=== PATIENT | male | born 1980 | race Caucasian/White ===

== ENCOUNTER 2018-07-13 15:36 | Inpatient (IN) | payer MEDICARE, MEDICAID ==
[~2018-07-13] VITALS: Ht 157.5 cm; Wt 50.8 kg
[2018-07-13] MEDS ORDERED: BENZ0.5T43 PO (16:06)
[2018-07-13] MEDS ORDERED: OLAN5TAB3 PO (16:06)
[2018-07-13] MEDS ORDERED: LORA10TA7 PO (16:06)
[2018-07-13] MEDS ORDERED: CARI3CAP PO (16:06)
[2018-07-13] MEDS ORDERED: DIVA500T54 PO (16:06)
[2018-07-13] MEDS ORDERED: FLUV50TA10 PO (16:06)
[2018-07-13] MEDS ORDERED: BACL10TA PO (16:06)
[2018-07-13] MEDS ORDERED: CLON0.5T12 PO (16:06)
[2018-07-13 16:24] LABS: BASOPHILS % (AUTO) 0.5 % (0.0-2.0); EOSINOPHILS % (AUTO) 7.6 % (0.0-6.0); HEMATOCRIT 40 % (39-51); HEMOGLOBIN 13.1 g/dL (13.5-17.5); LYMPHOCYTES # (AUTO) 1.7 /CMM (0.8-4.8); LYMPHOCYTES % (AUTO) 32.5 % (20.0-44.0); MEAN CORPUSCULAR HGB CONC 33 g/dl (31.0-36.0); MEAN CORPUSCULAR VOLUME 96 fL (80-96); MONOCYTES # (AUTO) 0.7 /CMM (0.1-1.30); MONOCYTES % (AUTO) 13.5 % (2.0-12.0); NEUTROPHILS # (AUTO) 2.4 /CMM (1.8-8.9); NEUTROPHILS % (AUTO) 45.9 % (43.0-81.0); PLATELET COUNT (AUTO) 195 /CMM (150-450); RED BLOOD CELL COUNT(AUTO) 4.13 MIL/uL (4.5-6.0); WHITE BLOOD COUNT (AUTO) 5.2 K/uL (4.3-11.0)
[2018-07-13 16:30] LABS: CALCIUM, SERUM 8.7 mg/dL (8.5-10.1); CARBON DIOXIDE 30 mmol/L (21-32); CHLORIDE 107 mmol/L (98-107); CREATININE 0.6 mg/dL (0.6-1.3); GLUCOSE 107 mg/dL (74-106); POTASSIUM 3.6 mmol/L (3.5-5.1); SODIUM SERUM 142 mmol/L (136-145); UREA NITROGEN, BLOOD 21 mg/dL (7-18)
[2018-07-13] MEDS ORDERED: IBUPROFEN 400 MG TABLET PO ONE (16:30)
[2018-07-13] MEDS ORDERED: OLANZAPINE 5 MG TABLET PO ONE (16:30)
[2018-07-13 16:38] LABS: ACETAMINOPHEN 0 ug/ml (10-30); ALANINE AMINOTRANSFERASE 31 U/L (12-78); ALBUMIN 3.1 g/dL (3.4-5.0); ALCOHOL, BLOOD < 3 mg/dL (0-0); ALKALINE PHOSPHATASE 44 U/L (46-116); ASPARTATE AMINOTRANSFERASE 54 U/L (15-37); BILIRUBIN,DIRECT 0.1 mg/dL (0.0-0.2); BILIRUBIN,TOTAL 0.2 mg/dL (0.2-1.0); SALICYLATE 1.2 mg/dL (2.8-20.0); TOTAL PROTEIN, SERUM 7.4 g/dL (6.4-8.2)
[2018-07-13 18:08] LABS: APPEARANCE,URINE Slightly Cloudy (CLEAR); BILIRUBIN,URINE Negative (NEGATIVE); BLOOD, URINE Negative Ery/uL (NEGATIVE); COLOR,URINE Yellow (YELLOW); KETONES,URINE Trace (NEGATIVE); LEUKOCYTE ESTERASE ,URINE Negative (NEGATIVE); NITRITE, URINE Negative (NEGATIVE); PROTEIN,URINE Negative (NEGATIVE); UGLUCOSE 500 MG/DL mg/dL (NEGATIVE)
[2018-07-13 18:19] LABS: BACTERIA,URINE Moderate /HPF (None Seen)
[2018-07-13 18:20] LABS: RBC,URINE 0-2 /HPF (0-2); SQUAMOUS EPITHELIAL CELL,UR Moderate /HPF (None Seen); WBC,URINE 0-2 /HPF (0-3)
[2018-07-14] MEDS ORDERED: MAG HYDROX/AL HYDROX/SIMETH 30 ML UDC PO PRN (09:30)
[2018-07-14] MEDS ORDERED: OLANZAPINE 5 MG TABLET PO PRN (09:30)
[2018-07-14] MEDS ORDERED: MAGNESIUM HYDROXIDE 30 ML UDC PO PRN (09:30)
[2018-07-14] MEDS ORDERED: IV NS 0.9% 1,000 ML IV ONE (09:30)
[2018-07-14] MEDS ORDERED: ZOLPIDEM TARTRATE 5 MG TABLET PO PRN (09:30)
[2018-07-14] MEDS ORDERED: ACETAMINOPHEN 325 MG TABLET PO PRN (09:30)
[2018-07-14] MEDS ORDERED: ONDANSETRON HCL/PF 4 MG/2 ML VIAL IVP PRN (09:30)
[2018-07-14] MEDS ORDERED: Z GUARD REMEDY 2 OZ OINT TP PRN (09:30)
[2018-07-14] MEDS ORDERED: HYDROCODONE/APAP 5/325MG 1 EACH TABLET PO PRN (09:30)
[2018-07-14] MEDS ORDERED: clonazePAM 0.5 MG TABLET PO PRN (09:30)
[2018-07-14 11:25] VITALS: BP 129/78
[2018-07-14] MEDS: DIVALPROEX SODIUM 500 MG TABLET.DR PO SCH ×2 (12:27→20:51)
[2018-07-14] MEDS: BENZTROPINE MESYLATE (1 MG) 1 MG TABLET PO SCH ×2 (12:28→20:51)
[2018-07-14] MEDS: BACLOFEN (10 MG) 10 MG TABLET PO SCH ×2 (12:28→17:41)
[2018-07-14 16:00] VITALS: BP 124/79
[2018-07-14 20:00] VITALS: BP 125/75
[2018-07-14] MEDS ORDERED: HALOPERIDOL LACTATE INJ 5 MG/ML VIAL IM STA (22:21)
[2018-07-15 06:29] LABS: BASOPHILS % (AUTO) 0.7 % (0.0-2.0); EOSINOPHILS % (AUTO) 8.2 % (0.0-6.0); HEMATOCRIT 42 % (39-51); HEMOGLOBIN 13.9 g/dL (13.5-17.5); LYMPHOCYTES # (AUTO) 2.3 /CMM (0.8-4.8); LYMPHOCYTES % (AUTO) 38.1 % (20.0-44.0); MEAN CORPUSCULAR HGB CONC 33 g/dl (31.0-36.0); MEAN CORPUSCULAR VOLUME 95 fL (80-96); MONOCYTES # (AUTO) 0.8 /CMM (0.1-1.30); MONOCYTES % (AUTO) 13.7 % (2.0-12.0); NEUTROPHILS # (AUTO) 2.4 /CMM (1.8-8.9); NEUTROPHILS % (AUTO) 39.3 % (43.0-81.0); PLATELET COUNT (AUTO) 203 /CMM (150-450); RED BLOOD CELL COUNT(AUTO) 4.37 MIL/uL (4.5-6.0)
[2018-07-15 06:38] LABS: CALCIUM, SERUM 8.9 mg/dL (8.5-10.1); CREATININE 0.7 mg/dL (0.6-1.3)
[2018-07-15 08:00] VITALS: BP 117/58
[2018-07-15] MEDS: BENZTROPINE MESYLATE (1 MG) 1 MG TABLET PO SCH ×2 (09:21→21:15)
[2018-07-15] MEDS: FLUVOXAMINE MALEATE 50 MG TABLET PO SCH (09:22)
[2018-07-15] MEDS: DIVALPROEX SODIUM 500 MG TABLET.DR PO SCH ×2 (09:22→21:15)
[2018-07-15] MEDS: BACLOFEN (10 MG) 10 MG TABLET PO SCH ×3 (09:22→16:20)
[2018-07-15] MEDS: LORATADINE 10 MG TABLET PO SCH (09:22)
[2018-07-15 18:53] VITALS: BP 128/91
[2018-07-15 20:00] VITALS: BP 102/71
[2018-07-16 08:00] VITALS: BP 109/81
[2018-07-16] MEDS: BENZTROPINE MESYLATE (1 MG) 1 MG TABLET PO SCH (08:48)
[2018-07-16] MEDS: FLUVOXAMINE MALEATE 50 MG TABLET PO SCH (08:48)
[2018-07-16] MEDS: LORATADINE 10 MG TABLET PO SCH (08:49)
[2018-07-16] MEDS: BACLOFEN (10 MG) 10 MG TABLET PO SCH ×2 (08:49→12:26)
[2018-07-16] MEDS: DIVALPROEX SODIUM 500 MG TABLET.DR PO SCH (08:49)
== END 2018-07-16 14:30 | disposition home or self-care (01) | DRG 683 ==
LOC: ER 15:38 → MED 07-14 10:17
PROVIDERS: ADMIT Family Medicine; ATTEND Family Medicine
DX: N17.9 Acute kidney failure, unspecified (principal); D68.69 Other thrombophilia; Z74.01 Bed confinement status; G80.9 Cerebral palsy, unspecified; F31.9 Bipolar disorder, unspecified
CPT/HCPCS: 36415; 73030-TC; 80048-TC; 80061-TC; 80076-TC; 80305; 81000-TC; 83735-TC; 84100-TC; 85025-TC; 87081-TC; 87086-TC; G0378; G0480; J1630; J7030